=== PATIENT | female | born 1995 | race American Indian/Alaskan Native ===

== ENCOUNTER 2018-06-22 22:03 | Emergency (ER) | payer BC, OTHER ==
[2018-06-22 22:09] VITALS: RESP 18; BMI 33.9
--- NOTE | 2018-06-22 23:08 | ED PDOC ---
Arrival/HPI <OzTj - Last Filed: 06/22/18 23:37> - General Historian: Patient - History of Present Illness Narrative History of Present Illness (Text): 06/22/18 22:57 22yo female with no pmhx who states she is currently 15weeks present to ED for flu vaccine. She report greenish productive cough, nasal congestion, facial pain, fever x 2days. Reports Tmax of 101 tonight. States her job referred her to ED for flu test. she states that she did not take any medication because she didn't know what to take. She denies chest pain, SOB, chills, nausea, vomiting, sore throat, sick contact, travel, any other complaint. <Tala Tate A - Last Filed: 06/23/18 01:03> - General Chief Complaint: Flu-like Symptoms Past Medical History - Provider Review Nursing Documentation Reviewed: Yes - Infectious Disease Hx of Infectious Diseases: None - Psychiatric Hx Anxiety: Yes Hx Bipolar Disorder: Yes Hx Substance Use: No - Surgical History Other/Comment: D and C - Anesthesia Hx Anesthesia: No <Tala Tate A - Last Filed: 06/23/18 01:03> Family/Social History - Physician Review Nursing Documentation Reviewed: Yes Family/Social History: Unknown Family HX Smoking Status: Current Some Days Smoker Hx Alcohol Use: Yes Frequency of alcohol use: Socially Hx Substance Use: No <Tala Tate A - Last Filed: 06/23/18 01:03> Allergies/Home Meds <Oz,Tj - Last Filed: 06/22/18 23:37> <Tala Tate A - Last Filed: 06/23/18 01:03> Allergies/Adverse Reactions: Allergies No Known Allergies Allergy (Verified 06/22/18 22:23) Home Medications: Home Meds Medication Instructions Recorded Confirmed Prenat 115/Iron Fum/Folic/Dss 1 tab PO DAILY 06/22/18 06/22/18 [ 19 Tablet] Review of Systems - Physician Review All systems were reviewed & negative as marked: Yes - Review of Systems Constitutional: Fevers Eyes: Normal ENT: Other (Nasal congestion) Respiratory: Cough, Sputum. absent: SOB, Wheezing Cardiovascular: Normal Gastrointestinal: Normal Genitourinary Female: Normal Musculoskeletal: Normal Skin: Normal Neurological: Normal Endocrine: Normal Hemo/Lymphatic: Normal Psychiatric: Normal <Diru,Happiness A - Last Filed: 06/23/18 01:03> Physical Exam Vital Signs Temp Pulse Resp BP Pulse Ox 06/22/18 22:08 98.6 F 91 H 18 130/74 98 <Tj Clinton - Last Filed: 06/22/18 23:37> Vital Signs Reviewed: Yes Vital Signs Temp Pulse Resp BP Pulse Ox 06/22/18 22:08 98.6 F 91 H 18 130/74 98 Temperature: Afebrile Blood Pressure: Normal Pulse: Regular Respiratory Rate: Normal Appearance: Positive for: Well-Appearing, Non-Toxic, Comfortable Pain Distress: None Mental Status: Positive for: Alert and Oriented X 3 - Systems Exam Head: Present: Atraumatic, Normocephalic Pupils: Present: PERRL Extroacular Muscles: Present: EOMI Conjunctiva: Present: Normal Mouth: Present: Moist Mucous Membranes Nose (Internal): Present: Other (Tenderness over the frontal sinus) Neck: Present: Normal Range of Motion Respiratory/Chest: Present: Clear to Auscultation, Good Air Exchange. No: Resp iratory Distress, Accessory Muscle Use, Wheezes, Rales, Retracting, Rhonchi, Tender to Palpation Cardiovascular: Present: Regular Rate and Rhythm, Normal S1, S2. No: Murmurs Abdomen: No: Tenderness, Distention, Peritoneal Signs Back: Present: Normal Inspection Upper Extremity: Present: Normal Inspection. No: Cyanosis, Edema Lower Extremity: Present: Normal Inspection. No: Edema Neurological: Present: GCS=15, CN II-XII Intact, Speech Normal Skin: Present: Warm, Dry, Normal Color. No: Rashes Psychiatric: Present: Alert, Oriented x 3, Normal Insight, Normal Concentration <Diru,Happiness A - Last Filed: 06/23/18 01:03> Medical Decision Making - Lab Interpretations Lab Results: Lab Results 06/22/18 22:45: Influenza Typ A,B (EIA) Negative for flu a/b - Medication Orders Current Medication Orders: Discontinued Medications Acetaminophen (Tylenol 325mg Tab) 650 mg PO STAT STA Stop: 06/22/18 23:25 Last Admin: 06/22/18 23:32 Dose: 650 mg MAR Pain/Vitals Document 06/22/18 23:32 LA (Rec: 06/22/18 23:33 LA [id number]) Pain Reassessment Is This A Pain ReAssessment? No Sleep Is patient sleeping during reassessment? No Presence of Pain Presence of Pain Yes Pain Scale Used Protocol: PSCALES Pain Scale Used Numeric Location Pain Location Body Supportability Engineer Intensity 4 Amoxicillin (Amoxil 500 Mg Cap) 500 mg PO STAT STA; Protocol Stop: 06/22/18 23:24 Last Admin: 06/22/18 23:32 Dose: 500 mg <OzTj - Last Filed: 06/22/18 23:37> ED Course and Treatment: 06/23/18 00:57 PT presented to ED for stated history. She was hemodynamically stable. In no distress and not lethargic. she denies abdomianl pain, vaginal bleeding/discahrge in ED. She noted that she is . Chest xray cannot be done at this point Rapid flu was negative in ED PT was placed on Amoxicillin secondary to her history of greenish productive cough with fever and sinusitis Result and plan was DW the pt and she agreed She was referred to her PMD. She verbalized understanding of the given instruction. <Tala Tate A - Last Filed: 06/23/18 01:03> - PA / RADIOLOGIC TECHNOLOGY PROGRAM DIRECTOR / Resident Statement CHRISTINA has reviewed & agrees with the documentation as recorded. CHRISTINA has examined the patient and agrees with the treatment plan. <OzTj - Last Filed: 06/22/18 23:37> Disposition/Present on Arrival <OzTj - Last Filed: 06/22/18 23:37> - Present on Arrival Any Indicators Present on Arrival: No History of DVT/PE: No History of Uncontrolled Diabetes: No Urinary Catheter: No History of Decub. Ulcer: No History Surgical Site Infection Following: None - Disposition Have Diagnosis and Disposition been Completed?: Yes Disposition Time: 23:50 Patient Plan: Discharge <Tala Tate - Last Filed: 06/23/18 01:03> - Disposition Diagnosis: Cough, Sinusitis Disposition: HOME/ ROUTINE Condition: STABLE Discharge Instructions (ExitCare): Sinusitis in Adults, Cough in Adults Additional Instructions: Follow up with your Doctor Return to ED for any new or worsening symptoms Prescriptions: Amoxicillin [Amoxil 500 mg Cap] 500 mg PO BID #[id number] cap Referrals: Roxanne Ribera MD [Medical Doctor] - Follow up with primary Forms: [employer] (Angolan)
[2018-06-23 00:06] VITALS: BP 129/77; PULSE 80; TEMP 98.2; O2SAT 97
== END 2018-06-23 00:07 | disposition home or self-care (01) ==
LOC: ED 22:03
DX: R05 Cough (principal); J32.9 Chronic sinusitis, unspecified; O26.892 Other specified pregnancy related conditions, second trimester; Z3A.15 15 weeks gestation of pregnancy